=== PATIENT | female | born 1945 | race Caucasian/White ===

== ENCOUNTER 2016-11-15 13:01 | Emergency (ER) | payer MEDICARE, OTHER ==
[~2016-11-15] VITALS: Ht 162.6 cm; Wt 62.0 kg
[2016-11-15 13:13] VITALS: BP 142/82; PULSE 84; RESP 16; TEMP 97.4; O2SAT 98
[2016-11-15] MEDS ORDERED: ROSU40 PO (13:29)
[2016-11-15] MEDS ORDERED: LIDOCAINE HCL 1% 50 ML VIAL INFIL ONE (13:30)
[2016-11-15] MEDS ORDERED: LISI10TA3 PO (13:30)
--- NOTE | 2016-11-15 13:44 | PD ---
HPI Chief Complaint: Injury Time Seen by Provider: 13:18 Travel History International Travel<30 days: No Contact w/Intl Traveler<30days: No Traveled to known affect area: No History of Present Illness HPI Patient is a 71-year-old male who presents emergency for evaluation of a lip laceration, right hand pain, rib pain after she sustained a fall approximately hour and a half prior to arrival. Patient states she was playing pickle ball when her foot stuck and she fell onto her right side and face. She states immediately after she fell she couldn't catch her breath. She denies loss of consciousness, headache. She reports her pain is a 4/10. She denies any chest pain, nausea, vomiting, visual changes, weakness, abdominal pain. PFSH Past Medical History Hx Anticoagulant Therapy: No High Cholesterol: Yes Hypertension: Yes Tetanus Vaccination: > 5 Years ?: Not Past Surgical History Hysterectomy: Yes Social History Alcohol Use: No Tobacco Use: No Substance Use: No Allergies-Medications (Allergen,Severity, Reaction): Coded Allergies: No Known Allergies (Unverified , 11/15/16) Reported Meds & Prescriptions Reported Meds & Active Scripts Active Augmentin (Amoxicillin-Clavulanate) 875-125 mg Tab 875 Mg PO BID not for use in CrCl <30 ml/min. Percocet (Oxycodone-Acetaminophen) 5-325 mg Tab 1 Tab PO Q6H PRN Reported Lisinopril 10 Mg Tab 10 Mg PO DAILY Crestor (Rosuvastatin Calcium) 40 Mg Tab 40 Mg PO DAILY Review of Systems Except as stated in HPI: all other systems reviewed are Neg Eyes: No: Visual changes HENT: No: Headaches, Neck Pain Cardiovascular: No: Chest Pain or Discomfort Respiratory: No: Shortness of Breath Gastrointestinal: No: Nausea, Vomiting, Abdominal Pain Musculoskeletal: Positive: Myalgias, Pain Skin: Positive Other (abrasion to nose, laceration to lip) Neurologic: No: Dizziness, Focal Abnormalities, Change in Mentation, Sensory Disturbance Physical Exam Narrative GENERAL: Well-developed, well-nourished, alert elderly female. Comfortably in no acute distress. SKIN: Warm and dry. HEAD: Abrasion to tip of nose, 4mm laceration to the mid lower lip. Normocephalic. No jaw pain, no crepitus noted. EYES: Pupils equal and round. No scleral icterus. No injection or drainage. ENT: No nasal bleeding or discharge. Mucous membranes pink and moist. NECK: Trachea midline. No JVD. CARDIOVASCULAR: Regular rate and rhythm. No murmur appreciated. RESPIRATORY: No accessory muscle use. Clear to auscultation. Breath sounds equal bilaterally. GASTROINTESTINAL: Abdomen soft, non-tender, nondistended. Hepatic and splenic margins not palpable. MUSCULOSKELETAL: No obvious deformities. No clubbing. No cyanosis. No edema. Tenderness palpation on anterior right chest wall under her right breast. No crepitus noted. 5/5 muscle strength in bilateral upper and lower extremities. Patient is neurovascularly intact. NEUROLOGICAL: Awake and alert. No obvious cranial nerve deficits. Motor grossly within normal limits. Normal speech. PSYCHIATRIC: Appropriate mood and affect; insight and judgment normal. Data Data Last Documented VS Vital Signs Date Time Temp Pulse Resp B/P Pulse Ox O2 Delivery O2 Flow Rate FiO2 11/15/16 13:21 80 16 96 Room Air 11/15/16 13:13 97.4 142/82 Orders Chest, Pa & Lat (11/15/16 ) Hand, Complete ([id number]) (11/15/16 ) Ct Brain W/O Iv Contrast(Rout) (11/15/16 ) Lidocaine 1% Inj (50 Ml) (Xylocaine 1% I (11/15/16 13:30) Ice/Cold Pack (11/15/16 13:23) Splint Or Brace Apply/Monitor (11/15/16 13:52) Splint Or Brace Apply/Monitor (11/15/16 13:52) MDM Medical Decision Making Medical Screen Exam Complete: Yes Emergency Medical Condition: Yes Interpretation(s) Vital Signs Date Time Temp Pulse Resp B/P Pulse Ox O2 Delivery O2 Flow Rate FiO2 11/15/16 13:21 80 16 96 Room Air 11/15/16 13:13 97.4 84 16 142/82 98 Differential Diagnosis Hemorrhage versus contusion versus laceration versus fracture versus sprain versus strain versus other Narrative Course Patient is a 71-year-old female who presented for evaluation after a fall that occurred approximately an hour and half prior to arrival. Patient denies any loss of consciousness or headache. Imaging was ordered of the hand and chest. CT scan of the brain was ordered to to patient's age according to [place] CT criteria. X-ray of the right hand shows a fracture at the base of the fifth medical carpal. Chest x-ray shows hyperinflation which can be seen and COPD, no acute cardiopulmonary disease and no evidence for an infiltrate is noted. Ulnar gutter splint ordered for right arm. CT scan of the brain is negative for acute hemorrhage, mass effect, fracture. She was advised that stitch and lip will dissolve on its own in approximately one week. She is advised to follow-up with hand surgeon for further evaluation. She is encouraged follow-up with primary doctor and she is encouraged to return to emergency department for any new or worsening symptoms. Patient and [id number] verbalized understanding of these instructions. Patient stable for discharge. Procedures Procedure Narrative LACERATION LOCATION: Mid lower lip LENGTH: 4 mm NUMBER OF STITCHES/JADE: 1 REPAIR: The area of the laceration was prepped with Betadine and sterilely draped. The laceration was infiltrated with 1% lidocaine. The wound was copiously irrigated and explored without evidence of foreign body, tendon injury or neurovascular injury. The wound was closed using 5-0 Vicryl. This was a 1 layer repair. Patient tolerated the procedure well. Diagnosis Primary Impression: Fall Qualified Code: W19.XXXA - Fall, initial encounter Additional Impressions: Laceration Contusion of face Qualified Code: S00.83XA - Contusion of face, initial encounter Fractured hand Qualified Code: S62.91XA - Fractured hand, right, closed, initial encounter Referrals: Jake Scott III, MD 3 days Hand Surgeon Primary Care Physician Patient Instructions: General Instructions Additional Instructions: Follow-up with hand surgeon Follow-up with your primary doctor The stitch on your lip will dissolve on its own in approximately one week Take medications as directed Do not drive or operate heavy machinery while taking narcotic pain medication Return to emergency department immediately for any new or worsening symptoms Rest, ice, elevate extremity Med/Other Pt SpecificInfo: Prescription(s) given Scripts Cyclobenzaprine (Flexeril)10 Mg Tab10 Mg PO TID PRN (MUSCLE SPASM) 7 Days Ref 0 Prov:Virgie Gaitan 11/15/16 Amoxicillin-Clavulanate (Augmentin)875-125 mg Aux013 Mg PO BID #10 TAB Ref 0 not for use in CrCl <30 ml/min. Prov:Virgie Gaitan 11/15/16 Oxycodone-Acetaminophen (Percocet)5-325 mg Tab1 Tab PO Q6H PRN (PAIN) #12 TAB Ref 0 Prov:Franck Kilgore MD 11/15/16 Disposition: 01 DISCHARGE HOME Condition: Stable Virgie Gaitan Nov 15, 2016 13:44
--- NOTE | 2016-11-15 13:47 | RADHPO ---
EXAM DATE/TIME: 11/15/2016 13:35 [facility] COMPARISON: No previous studies available for comparison. INDICATIONS : Fell, complains of pain of right side chest and breast. MEDICAL HISTORY : None. SURGICAL HISTORY : None. ENCOUNTER: Initial ACUITY: 1 day PAIN SCORE: 6/10 LOCATION: Right chest FINDINGS: PA and lateral views of the chest demonstrates hyperinflation which can be seen with CO PD. No infiltrates are seen. Heart is normal in size. The mediastinal contours are unremarkable. O sseous structures are intact. Scoliosis. CONCLUSION: Hyperinflation which can be seen with COPD. No acute cardiopulmonary disease an d no evidence for an infiltrate. Elio Mccarthy MD on November 15, 2016 at 13:45 Board Certified Radiologist. This report was verified electronically.
--- NOTE | 2016-11-15 13:48 | RADHPO ---
EXAM DATE/TIME: 11/15/2016 13:30 [facility] COMPARISON: No previous studies available for comparison. INDICATIONS : Fell, complains of right hand pain. MEDICAL HISTORY : None. SURGICAL HISTORY : None. ENCOUNTER: Initial ACUITY: 1 day PAIN SCORE: 6/10 LOCATION: Right hand FINDINGS: Three view examination of the right hand demonstrates soft tissue swelling medially. There is a nond isplaced fracture along the base of the fifth metacarpal. Scattered degenerative changes greatest inv olving the first and third metacarpal phalangeal joints. CONCLUSION: Fracture of the base of the fifth metacarpal. Elio Mccarthy MD on November 15, 2016 at 13:45 Board Certified Radiologist. This report was verified electronically.
--- NOTE | 2016-11-15 14:14 | RADHPO ---
EXAM DATE/TIME: 11/15/2016 13:50 [facility] COMPARISON: No previous studies available for comparison. INDICATIONS : Fall today onto face. RADIATION DOSE: 57.37 CTDIvol (mGy) MEDICAL HISTORY : Hypertension. SURGICAL HISTORY : Hysterectomy. jaw surgery ENCOUNTER: Initial ACUITY: 1 day PAIN SCALE: 1/10 LOCATION: Bilateral head TECHNIQUE: Multiple contiguous axial images were obtained of the head. Using automated exposure control and adj ustment of the mA and/or kV according to patient size, radiation dose was kept as low as reasonably a chievable to obtain optimal diagnostic quality images. FINDINGS: CEREBRUM: Scattered areas of low attenuation throughout the white matter. The ventricles are normal for age. N o evidence of midline shift, mass lesion, hemorrhage or acute infarction. No extra-axial fluid colle ctions are seen. POSTERIOR FOSSA: The cerebellum and brainstem are intact. The 4th ventricle is midline. The cerebellopontine angle i s unremarkable. EXTRACRANIAL: The visualized portion of the orbits is intact. SKULL: The calvaria is intact. No evidence of skull fracture. CONCLUSION: Chronic ischemic small vessel vasculopathy. No acute intracranial abnormality. Elio Mccarthy MD on November 15, 2016 at 14:11 Board Certified Radiologist. This report was verified electronically.
[2016-11-15] MEDS ORDERED: PERC5TAB12 PO (14:21)
[2016-11-15] MEDS ORDERED: AUGM875T PO (14:25)
[2016-11-15] MEDS ORDERED: CYCL1TAB29 PO (14:28)
== END 2016-11-15 14:42 | disposition home or self-care (01) ==
LOC: EDSEX → PHEFT 13:01
DX: S00.83XA Contusion of other part of head, initial encounter (principal); S62.91XA Unspecified fracture of right hand, initial encounter for closed fracture; S01.511A Laceration without foreign body of lip, initial encounter; E78.00 Pure hypercholesterolemia, unspecified; I10 Essential (primary) hypertension; W18.30XA Fall on same level, unspecified, initial encounter; Y93.79 Activity, other specified sports and athletics; Y99.8 Other external cause status
CPT/HCPCS: 12011; 29125; 70450; 71020; 73130